=== PATIENT | female | born 1995 | race Caucasian/White ===

== ENCOUNTER → 2025-07-07 07:41 | Outpatient (REF) | payer OTHER, SELFPAY | LOC: RAD 07:41 | PROVIDERS: ATTENDING PHYSICIAN Physician Assistant | DX: Z76.89 Persons encountering health services in other specified circumstances (principal); R10.32 Left lower quadrant pain; R19.7 Diarrhea, unspecified; R63.0 Anorexia | CPT/HCPCS: 74177; Q9967 ==